=== PATIENT | female | born 1995 | race Caucasian/White ===

== ENCOUNTER 2022-04-23 16:35 | Inpatient (IN) | payer BC, OTHER, SELFPAY ==
[2022-04-23] VITALS (56 sets, daily range): BP systolic 85–226; BP diastolic 34–207; PULSE 84–170; TEMP 36.4–36.8; O2SAT 98–100; BMI 38.7
--- NOTE | 2022-04-23 16:35 | LDADM ---
This patient, Feng Alfaro, was admitted to Labor/Delivery/Recovery 108 on 04/23/22 at 16:35. Plans for labor, pain management and were discussed with patient. Patient/family oriented to hospital policies and general routines including ID bracelet, bed and alarms, visiting hours, pain management, procedures, bathroom and other care routines, personal items, smoking policy, room service/diet and guest tray routines, security routines, and visiting hours. Patient/Family are encouraged to report perceived risks to care and to ask questions if they do not understand what they are told or what they should do. See OBIX for further documentation.
--- NOTE | 2022-04-23 17:16 | P.PNAN_ITS ---
Anes - Eval Pre Procedure Procedure: Labor epidural Date/Time: 04/23/22 17:16 Pre Op Diagnosis: IOL Patient Data Age: 27 Gender: F Height: Weight: Last Vital Signs Pulse 117 H 04/23/22 17:00 BP 135/83 04/23/22 17:00 Allergies Allergy/AdvReac Type Severity Reaction Status Date / Time No Known Drug Allergies Allergy Unknown Unverified 04/11/22 09:57 Home Medications Medication Instructions Recorded Confirmed Type ferrous sulfate 325 mg (65 mg 325 mg PO DAILY 04/08/22 04/08/22 History iron) tablet prenat.vits,greta,ela-iksx-cuuqo 1 tablet PO DAILY 04/08/22 04/08/22 History Patient hx anesthesia problems: none Family hx anesthesia problems: none Results Review: All pre-operative results and documents have been reviewed as part of the pre- operative evaluation. [facility] Past Medical History Medical History (Updated 04/23/22 @ 17:26 by Tricia Lin CRNA) Anxiety Family History Family History Grandparent Diabetes mellitus Father Asthma Mother High cholesterol Social History Social History Substance use: never Spiritual care concerns: No Exam Day of Procedure 04/23/22 17:16 Patient weight: obese Heart: regular rate and rhythm Lungs: normal air movement Airway: Mallampati scale class II Neurological: alert and oriented
[2022-04-23 17:32] LABS: Basophils Percent Auto 0.3 % (0.2-1.2); Eosinophils Absolute Auto 0.2 K/mm3 (0-0.3); Eosinophils Percent Auto 1.5 % (0-4.4); Hematocrit 33.2 % (37.0-47.0); Hemoglobin 11.2 g/dL (12.0-15.0); Lymphocytes Absolute Auto 1.22 K/mm3 (0.9-3.2); Lymphocytes Percent Auto 11.9 % (18.3-44.2); Mean Corpuscular HGB Conc 33.7 g/dl (32-36); Mean Corpuscular Hemoglobin 30.4 pg (26-34); Mean Platelet Volume 10.1 fl (7.4-10.4); Monocytes Absolute Auto 0.6 K/mm3 (0.1-0.6); Monocytes Percent Auto 6.1 % (2.6-8.5); Neutrophils Absolute Auto 8.1 K/mm3 (1.3-6.7); Neutrophils Percent Auto 79.2 % (45.5-73.1); Platelet Count Result 236 k/mm3 (150-375); Red Blood Count 3.69 M/mm3 (4.2-5.4); Red Cell Distribution Width 14.9 % (11.5-14.5); White Blood Count 10.3 K/mm3 (4.5-10.0)
[2022-04-23] MEDS: DINOPROSTONE 10 MG VAG INSERT VAGINAL (17:42)
[2022-04-23] MEDS: LACTATED RINGERS 1,000 ML 125 ML IV CONT (21:35)
[2022-04-23] MEDS: ONDANSETRON INJ 4 MG/2 ML VIAL IV PUSH (23:17)
[2022-04-23] MEDS: LACTATED RINGERS 1,000 ML 999 ML IV CONT (23:17)
[2022-04-23] MEDS: PHENYLEPHRINE 1,000 MCG/10 ML SYRINGE 100 MCG IV PUSH (23:49)
[2022-04-24] VITALS (287 sets, daily range): BP systolic 76–143; BP diastolic 35–104; PULSE 48–206; RESP 13–21; TEMP 36.4–38.1; O2SAT 79–100
[2022-04-24] MEDS: LACTATED RINGERS 1,000 ML 999 ML IV CONT ×3 (01:04→12:16)
--- NOTE | 2022-04-24 02:42 | PM.IMHP ---
H&P: HPI History of Present Illness Date/Time: 04/24/22 02:42 Chief Complaint: Here for induction of labor. Narrative: 27 y/o G1 at 39 5/7 weeks here for induction of labor. GBS neg. Review of Systems Review of Systems: All systems reviewed & are unremarkable except as noted in HPI and below PMFSH Past Medical History Medical History Anxiety Hypothyroidism affecting Infertility Family History Family History Grandparent Diabetes mellitus Father Asthma Mother High cholesterol Social History Social History Smoking status: Never smoker Second hand tobacco smoke exposure: No Substance use: never Spiritual care concerns: No Meds Home Medications and Allergies Home Medications Medication Instructions Recorded Confirmed Type ferrous sulfate 325 mg (65 mg 325 mg PO DAILY 04/08/22 04/23/22 History iron) tablet prenat.vits,greta,etp-[id number] 1 tablet PO DAILY 04/08/22 04/23/22 History Allergies Allergy/AdvReac Type Severity Reaction Status Date / Time No Known Drug Allergies Allergy Unknown Unverified 04/11/22 09:57 Vital Signs Vital Signs - 24 hr 04/23/22 16:52 04/23/22 17:00 04/23/22 17:30 Temperature Pulse Rate 118 H 117 H 103 H Blood Pressure 129/88 135/83 142/76 H Pulse Oximetry Oxygen Delivery 04/23/22 17:45 04/23/22 18:00 04/23/22 18:15 Temperature Pulse Rate 101 H 92 87 Blood Pressure 152/88 H 128/77 132/81 Pulse Oximetry Oxygen Delivery 04/23/22 18:30 04/23/22 18:45 04/23/22 19:00 Temperature Pulse Rate 91 91 91 Blood Pressure 133/81 131/72 131/79 Pulse Oximetry Oxygen Delivery 04/23/22 19:15 04/23/22 19:30 04/23/22 19:49 Temperature Pulse Rate 87 96 100 Blood Pressure 128/73 133/78 142/79 H Pulse Oximetry Oxygen Delivery 04/23/22 20:00 04/23/22 20:15 04/23/22 20:30 Temperature 36.4 C L Pulse Rate 93 87 98 Blood Pressure 131/86 132/86 134/89 Pulse Oximetry Oxygen Delivery 04/23/22 20:46 04/23/22 20:59 04/23/22 21:01 Temperature Pulse Rate 114 H 100 98 Blood Pressure 135/103 H 143/76 H 133/71 Pulse Oximetry Oxygen Delivery 04/23/22 21:16 04/23/22 21:31 04/23/22 21:46 Temperature Pulse Rate 94 95 88 Blood Pressure 153/78 H 143/81 H 125/56 L Pulse Oximetry Oxygen Delivery 04/23/22 22:00 04/23/22 22:45 04/23/22 22:48 Temperature Pulse Rate 100 112 H Blood Pressure 136/76 110/87 Pulse Oximetry 99 Oxygen Delivery 04/23/22 22:50 04/23/22 22:51 04/23/22 22:55 Temperature Pulse Rate 115 H 118 H Blood Pressure 117/67 134/80 Pulse Oximetry 98 100 Oxygen Delivery 04/23/22 22:56 04/23/22 22:57 04/23/22 22:59 Temperature Pulse Rate 122 H 119 H 114 H Blood Pressure 137/73 128/67 127/62 Pulse Oximetry Oxygen Delivery 04/23/22 23:00 04/23/22 23:05 04/23/22 23:10 Temperature Pulse Rate Blood Pressure Pulse Oximetry 100 100 100 Oxygen Delivery 04/23/22 23:14 04/23/22 23:15 04/23/22 23:18 Temperature Pulse Rate 115 H 107 H 98 Blood Pressure 98/60 L 89/42 L 103/50 L Pulse Oximetry 100 Oxygen Delivery 04/23/22 23:20 04/23/22 23:22 04/23/22 23:25 Temperature Pulse Rate 149 H 170 H Blood Pressure 85/66 L 211/179 H Pulse Oximetry 100 100 Oxygen Delivery 04/23/22 23:27 04/23/22 23:28 04/23/22 23:30 Temperature Pulse Rate 84 Blood Pressure 226/207 H 226/194 H Pulse Oximetry 100 Oxygen Delivery 04/23/22 23:31 04/23/22 23:33 04/23/22 23:34 Temperature Pulse Rate 103 H 103 H 94 Blood Pressure 114/38 L 105/39 L 97/37 L Pulse Oximetry Oxygen Delivery 04/23/22 23:35 04/23/22 23:37 04/23/22 23:40 Temperature Pulse Rate 102 H 114 H Blood Pressure 107/34 L 105/43 L Pul
[2022-04-24] MEDS: OXYTOCIN 30 UNITS/NS 500 ML 30 UNITS/500 ML BAG IV CONT (04:34)
[2022-04-24] MEDS: FAMOTIDINE 20 MG TABLET PO (05:18)
[2022-04-24 07:33] LABS: Rapid Plasma Reagin Non-Reactive (NonReactive)
--- NOTE | 2022-04-24 08:44 | PM.OBPNLAB ---
Pain Control Date/time seen: 04/24/22 08:44 Comfortable with epidural. AVSS NST reactive TOCO: contractions every 2-3 min Cervix /-1 Continue labor.
--- NOTE | 2022-04-24 12:00 | PM.OBPNLAB ---
Pain Control Date/time seen: 04/24/22 1200 Pushing since 1120. NST reactive. Pain well-controlled. Continue pushing.
[2022-04-24] MEDS: ONDANSETRON INJ 4 MG/2 ML VIAL IV PUSH (12:10)
--- NOTE | 2022-04-24 13:14 | PM.OBPNLAB ---
Pain Control Date/time seen: 04/24/22 13:14 Pain OK. Temp 100.4 NST reactive 150 TOCO: contractions every 3-4 min Cervix C/0. ROT. Increase oxytocin and continue pushing for now. Ampicillin to address temp.
[2022-04-24] MEDS: AMPICILLIN 2 GM/NS 100 ML 2 GM/100 ML BAG IVPB (13:15)
--- NOTE | 2022-04-24 14:25 | PM.OBPNLAB ---
Pain Control Date/time seen: 04/24/22 14:25 After 3 hours of pushing, the patient was able to bring the presenting part to the +1 of 3 position. I offered VAVD. We reviewed risks, benefits and alternatives in detail. She agreed to proceed. The Kiwi vacuum suction cup was applied to the vertex. Using the Dreifingergriff, the head was gently flexed. She pushed over two contractions, with no pop-offs, no significant descent of the vertex could be effected. I offered the patient a primary delivery. She understands risks of surgery to include risks of anesthesia, risks of pain, infection, bleeding, blood products, thromboembolic phenomena and damage to adjacent structures such as bowel, bladder, ureters, blood vessels and nerves. She understands all these risks and elects to proceed with surgery.
--- NOTE | 2022-04-24 15:25 | PM.OBPRVD ---
OB - Delivery Note Procedure Delivery date: 04/24/22 Procedure: Procedures Operation Date: 04/24/22 14:45 <No data on this case meets the specified criteria> Primary low transverse delivery Intrapartal Events: Arrest of Descent Induction method: Per Cervidil Protocol Delivery augmentation: Pitocin Delivery monitor: External FHT, External Uterine and Internal Uterine Route of delivery: Prior to decision for section, ACOG/SMFM labor guidelines were considered and discussed with the patient and staff. Decision made to proceed with the section.: Yes Specimen: Yes (cord blood, placenta) Quantitative Blood Loss (ml): 875 Anesthesia type: Epidural Disposition: PACU Complications: None Narrative: The patient was taken to the operating room where she was prepared and draped in the usual sterile fashion in dorsal supine position with a leftward tilt. She received cefazolin preoperatively. Epidural anesthesia was found to be adequate. A Pfannenstiel skin incision was made and carried through to the underlying layer of the fascia. The fascia was incised in the midline and the incision was extended laterally. The fascia was dissected free of the underlying rectus muscles. The rectus muscles were in the midline. The peritoneum was identified, tented up and entered sharply. The peritoneal incision was extended superiorly and inferiorly with good visualization of the bladder. The bladder blade was placed. The vesicouterine peritoneum was identified, tented up and entered sharply. The incision was extended laterally and the bladder flap was developed. The bladder blade was replaced. The uterus was then incised sharply in a transverse fashion along the lower uterine segment. The incision was extended laterally. The infant's head was delivered atraumatically to the sterile field, followed by the body. The nose and mouth were bulb suctioned. After a delay, the cord was clamped and cut. The was handed off the field. Cord blood was collected. The placenta was removed manually and was passed off the field. The uterus was exteriorized and cleared of all clots and debris. The uterine incision was reapproximated using 0 Monocryl in a running, locked fashion. A second, imbricating layer of the same suture was run. Excellent hemostasis resulted as did excellent reapproximation of the normal anatomy. The uterus was returned the abdomen. The pelvis was irrigated copiously with warmed normal saline. Rigorous hemostasis was assured. The fascial layer was reapproximated using 0 Vicryl in a running fashion. The skin was closed with a running, subcuticular stitch of 4 0 Vicryl. Dermaflex was applied externally. Sponge, lap, needle and instrument counts were correct. The patient was taken to the recovery room in stable condition. The went to the nursery in stable condition. I was present and scrubbed the entire procedure. Baby Date of : 04/24/22 Time of : 14:56 Weeks of gestation at delivery: 39 gender: Male Weight (pounds): 9 Weight (ounces): 14 presentation: vertex position: Left Occiput Transverse Placenta delivery description: Manual Removal and Normal Configuration Cord Vessel Description: 3 Vessels and Delayed Cord Clamping score one minute: 7 score five minutes: 9
--- NOTE | 2022-04-24 15:27 | P.DS_ITS ---
DS: Admitting Diagnosis Discharge Date 04/26/22 Admitting Diagnosis IUP at 39 6/7 OB - DS: Summary OB Procedures : None OB Procedures Intrapartum: OB Procedures: : None Peripartum Data Procedures: Procedures Operation Date: 04/24/22 14:45 <No data on this case meets the specified criteria> Time Spent with Patient Time attestation: Total time spent providing and/or coordinating discharge services: DS: Data Data Completed and Pending Labs on day of discharge: Labs from last 24 hours 04/23/22 04/23/22 04/23/22 16:59 16:59 16:59 WBC 10.3 H RBC 3.69 L Hgb 11.2 L Hct 33.2 L MCV 90.0 MCH 30.4 MCHC 33.7 RDW 14.9 H Plt Count 236 MPV 10.1 Immature Gran % (Auto) 1.0 H Neut % (Auto) 79.2 H Lymph % (Auto) 11.9 L Bennett % (Auto) 6.1 Eos % (Auto) 1.5 Baso % (Auto) 0.3 Lymph # (Auto) 1.22 Bennett # (Auto) 0.6 Eos # (Auto) 0.2 Baso # (Auto) 0.0 Abs Immat Gran (auto) 0.10 H Absolute Neuts (auto) 8.1 H Absolute Nucleated RBC 0.0 Nucleated RBC % 0.0 RPR Non-reactive Blood Type A Positive Antibody Screen Negative Discharge Plan Discharge Attending physician on discharge: Arnol Mccray Discharging Clinician: Arnol Mccray Patient Disposition: Home, Self-Care Activity: may shower, may drive after 2 weeks and pelvic rest Diet: regular Wound Care Instructions: incision open to air Discharge Instructions: Call or return if temperature above 100.4? F, increased abdominal pain, increased vaginal bleeding or any new problems. Stand Alone Forms: General Discharge Information Follow-up/Referrals: Arnol Mccray MD [Physician] - 4 Weeks Discharge Medications: New ibuprofen 600 mg tablet 600 mg PO Q6H PRN (Reason: cramps) Qty: 30 0RF hydrocodone-acetaminophen 5-325 mg tablet 1 - 2 tablet PO Q6H PRN (Reason: pain) Qty: 30 0RF Continued ferrous sulfate 325 mg (65 mg iron) Tablet 325 mg PO DAILY Qty: 30 0RF No Action #2 Tablet 1 tablet PO DAILY Date of admission: 04/23/22 16:35 Primary Care Provider: Ming,Allison Huang Admitting Provider: Arnol Mccray Attending physician on admission: Arnol Mccray Condition: Stable
[2022-04-24] MEDS: SCOPOLAMINE 1.5 MG PATCH TRANSDERM (16:17)
[2022-04-24] MEDS: OXYTOCIN 30 UNITS/NS 500 ML 30 UNITS/500 ML BAG 125 UNITS IV CONT (16:21)
[2022-04-24] MEDS: KETOROLAC 30 MG/ML VIAL (*BKC) IV PUSH (17:21)
--- NOTE | 2022-04-24 17:45 | PC.NURSE ---
Patient transferred to post room #286 via stretcher. Support person present. Oriented to unit, room, information board, rooming in, admission packet and security measures. Patient verbalizes understanding.
[2022-04-24] MEDS: SIMETHICONE 80 MG TAB.CHEW PO (18:53)
[2022-04-24] MEDS: DOCUSATE SODIUM 100 MG CAPSULE PO (18:53)
[2022-04-24] MEDS: HYDROcodone/acetaminophen (*CRX) 10-325 MG TABLET 1 TAB PO (18:53)
[2022-04-24] MEDS: DEXTROSE 5%/0.45% SOD CHL 1,000 ML 125 ML IV CONT (19:48)
[2022-04-25] MEDS: LANOLIN (LANSINOH) 7.5 GM CREAM 1 APPLIC TOPICAL (01:58)
[2022-04-25] MEDS: IBUPROFEN 600 MG TABLET PO ×3 (01:58→20:01)
[2022-04-25] MEDS: SIMETHICONE 80 MG TAB.CHEW PO ×5 (01:58→20:01)
[2022-04-25] MEDS: HYDROcodone/acetaminophen (*CRX) 10-325 MG TABLET 1 TAB PO ×4 (02:00→20:01)
[2022-04-25 04:00] VITALS: BP 116/65; PULSE 84; RESP 18; TEMP 37
[2022-04-25 05:12] LABS: Basophils Absolute Auto 0.1 K/mm3 (0.0-0.1); Basophils Percent Auto 0.4 % (0.2-1.2); Eosinophils Percent Auto 0.2 % (0-4.4); Hematocrit 23.1 % (37.0-47.0); Hemoglobin 7.7 g/dL (12.0-15.0); Immature Granulocyte Absolute 0.05 K/mm3 (0.00-0.031); Immature Granulocyte Percent A 0.4 % (0-0.5); Lymphocytes Absolute Auto 0.65 K/mm3 (0.9-3.2); Lymphocytes Percent Auto 5.4 % (18.3-44.2); Mean Corpuscular HGB Conc 33.3 g/dl (32-36); Mean Corpuscular Hemoglobin 30.6 pg (26-34); Mean Corpuscular Volume 91.7 fl (80-100); Mean Platelet Volume 10.3 fl (7.4-10.4); Monocytes Absolute Auto 0.5 K/mm3 (0.1-0.6); Neutrophils Absolute Auto 10.7 K/mm3 (1.3-6.7); Neutrophils Percent Auto 89.6 % (45.5-73.1); Platelet Count Result 151 k/mm3 (150-375); Red Blood Count 2.52 M/mm3 (4.2-5.4); Red Cell Distribution Width 15.3 % (11.5-14.5)
[2022-04-25 07:45] VITALS: BP 112/58; PULSE 103; RESP 16; TEMP 36.8; O2SAT 99
[2022-04-25] MEDS: MULTIVIT/MIN/PREN/FOL AC/IRON TABLET 1 TAB PO (08:09)
[2022-04-25] MEDS: POLYSACCHARIDE IRON COMPLEX 150 MG CAPSULE PO ×2 (08:09→16:13)
[2022-04-25] MEDS: DOCUSATE SODIUM 100 MG CAPSULE PO ×2 (08:09→16:13)
[2022-04-25] MEDS: HYDROcodone/acetaminophen (*CRX) 5-325 MG TABLET 1 TAB PO (11:50)
[2022-04-25 12:15] VITALS: BP 118/59; PULSE 95; RESP 16; TEMP 36.6; O2SAT 98
--- NOTE | 2022-04-25 13:32 | P.PNOB_ITS ---
OB - PN: Subj Subjective Date/time seen: 04/25/22 13:32 Narrative: Pain OK. Tolerating diet. Would like circumcision for son. OB - PN: Obj Data Labs CBC & Chem 7: 04/25/22 04:18 Labs: Laboratory Results - last 24 hr 04/25/22 04:18 WBC 12.0 H RBC 2.52 L Hgb 7.7 L D Hct 23.1 L MCV 91.7 MCH 30.6 MCHC 33.3 RDW 15.3 H Plt Count 151 MPV 10.3 Immature Gran % (Auto) 0.4 Neut % (Auto) 89.6 H Lymph % (Auto) 5.4 L Garland % (Auto) 4.0 Eos % (Auto) 0.2 Baso % (Auto) 0.4 Lymph # (Auto) 0.65 L Garland # (Auto) 0.5 Eos # (Auto) 0.0 Baso # (Auto) 0.1 Abs Immat Gran (auto) 0.05 H Absolute Neuts (auto) 10.7 H Absolute Nucleated RBC 0.0 Nucleated RBC % 0.0 OB - PN A/P Plan Comments: A: POD#1, doing well. P: Reviewed circ. Routine care. Exam Narrative: AVSS I/O OK ABD soft, nontender, fundus firm. Incision c/d/i. EXT nontender
--- NOTE | 2022-04-25 15:35 | PC.NURSE ---
[id number] Introductions were made, then consulted with patient to assess needs related to . Mother led the conversation with her experience feeding her so far. Encouraged understanding of the benefits of skin to skin (unwrapping infant and placing vertically on her chest), responsive feeding and how to watch for early feeding signs, frequency of feeding on demand about every 8-12 times in 24 hours (every 2-3 hours), milk production, duration of feeding, signs of adequate intake/output and how to record on the feeding sheet. Reviewed good handwashing when or touching the breast/nipples to prevent infection. Resources used to facilitate learning were used with the visual handouts/ tool/mom and baby guide. Educated mother concerning care and usage of electric pumping and the artful skill of hand expression. Mother voiced understanding of responsive feedings, stimulating with skin to skin, hand expressed colostrum, touch, talking to infant to encourage if it has been 2 -3 hours since the start of the last , to call if does not latch or there is discomfort with . Reported to the primary RN. [id number] Consulted with patient to assess needs related to when called into the room after infant returned from being circumcised. Mother led conversation with her experience with feeding baby so far. Mother works well with her infant. Mother demonstrated hand expression and finger fed scant amounts of colostrum into infants mouth. Demonstrated to parents how to simtulate to breastfeed and infant is sleepy, reluctant, and shows no efforts to breastfeed at this time. Infant placed skin to skin, mother plans on hand expressing, electric pumping and possibly supplementing now or later. Mother voiced understanding of the education shared, calling for assistance if the infant does not latch or if there is discomfort with . Reported to the primary RN.
[2022-04-25 15:45] VITALS: BP 116/58; PULSE 97; RESP 16; TEMP 36.6; O2SAT 98
--- NOTE | 2022-04-25 18:48 | WPDANLDNPN2 ---
Anes-Prog Note L&D-Neuraxial Date/Time: 04/25/22 18:48 Neuraxial medications: epidural PF morphine Opiod-related complaints: none Patient feedback: Patient satisfied with post-operative pain management.
--- NOTE | 2022-04-25 18:49 | WPDANLDPN2 ---
Anes-Prog Note L&D Date/Time: 04/25/22 18:49 Comfortable throughout: labor and section Neuraxial method: epidural Epidural/Spinal procedure site: clean & non-tender Neuro status: Neuro function grossly intact. Cardiovascular status: normal Respiratory status: normal Airway patency: baseline Mental status: baseline Post-Op hydration status: normal Vital Signs: Last Vital Signs Temp 36.6 C 04/25/22 15:45 Pulse 97 04/25/22 15:45 Resp 16 04/25/22 15:45 BP 116/58 L 04/25/22 15:45 Pulse Ox 98 04/25/22 15:45 O2 Del Method Room Air 04/25/22 04:00 Pain score (VAS): 0 I/O: Intake & Output 04/25/22 04/25/22 04/25/22 07:59 15:59 23:59 Intake Total 3000 590 Output Total 1200 Balance 1800 590 Patient feedback: Patient satisfied with anesthetic care.
[2022-04-25 19:50] VITALS: BP 132/68; PULSE 116; RESP 16; TEMP 37.2
[2022-04-26] MEDS: HYDROcodone/acetaminophen (*CRX) 10-325 MG TABLET 1 TAB PO ×2 (04:25→12:24)
[2022-04-26] MEDS: IBUPROFEN 600 MG TABLET PO ×2 (04:25→12:23)
[2022-04-26] MEDS: SIMETHICONE 80 MG TAB.CHEW PO ×2 (04:25→12:23)
[2022-04-26 07:15] VITALS: PULSE 116; RESP 16; O2SAT 98
[2022-04-26 07:55] VITALS: BP 112/55; PULSE 95; RESP 16; TEMP 36.6; O2SAT 100
--- NOTE | 2022-04-26 11:38 | PM.OBPNVD ---
OB - PN: Subj Subjective Date/time seen: 04/26/22 11:38 Narrative: Pain OK. Tolerating diet. Would like to go home. OB - PN: Obj Data Labs CBC & Chem 7: 04/25/22 04:18 OB - PN A/P Plan Comments: A: POD#2, doing well. Would like to go home. P: Home to f/u 4 weeks. Exam Narrative: AVSS ABD soft, nontender, fundus firm. Incision c/d/i. EXT nontender
--- NOTE | 2022-04-26 11:46 | PC.NURSE ---
This morning primary RN Laura reported mother has been bottle feeding her and pumping. She doesn't request any additional assistance at this time.
--- NOTE | 2022-04-26 12:15 | PC.NURSE ---
Patient viewed the discharge video Mother & Baby Care, The First Two Weeks . Patient was given the opportunity and encouraged to ask questions. Patient verbalized understanding of information shared and has been given the mother/baby guide for home reference.
[2022-04-26] MEDS: MEASLES,MUMPS,RUBELLA VACCINE 0.5 ML VIAL SUB-Q (12:21)
[2022-04-26] MEDS: POLYSACCHARIDE IRON COMPLEX 150 MG CAPSULE PO (12:22)
[2022-04-26] MEDS: DOCUSATE SODIUM 100 MG CAPSULE PO (12:22)
[2022-04-26] MEDS: MULTIVIT/MIN/PREN/FOL AC/IRON TABLET 1 TAB PO (12:23)
[2022-04-27 07:53] VITALS: BP 126/59; PULSE 120; RESP 20; TEMP 37.1; O2SAT 98
== END 2022-04-26 13:05 | disposition home or self-care (01) | DRG 787 ==
LOC: ANHLDR 16:40 → ANHOB2 04-24 18:22
PROVIDERS: Admitting Provider Obstetrics & Gynecology; PCP Family Medicine; Visit Provider Obstetrics & Gynecology
PROC: 10D00Z1 Extraction of Products of Conception, Low, Open Approach (ICD-10-PCS; CPT 59514; principal; 2022-04-24 14:45)
DX: O62.1 Secondary uterine inertia (principal); O75.2 Pyrexia during labor, not elsewhere classified; O99.284 Endocrine, nutritional and metabolic diseases complicating childbirth; E03.9 Hypothyroidism, unspecified; O77.0 Labor and delivery complicated by meconium in amniotic fluid; Z3A.39 39 weeks gestation of pregnancy; Z37.0 Single live birth
CPT/HCPCS: 36415; 85025; 86592; 86850; 86900; 86901; 88307; 90710; A9270; J0290; J1200; J1885; J2250; J2274; J2370; J2405; J2590; J2795; J7120

== ENCOUNTER 2022-05-01 16:46 | Outpatient (CLI) | payer BC, OTHER, SELFPAY ==
[2022-05-01 17:00] VITALS: BP 128/66; PULSE 107
[2022-05-01 17:05] VITALS: RESP 18; TEMP 35.9
--- NOTE | 2022-05-01 17:05 | PC.NURSE ---
Patient was sent to Labor per Dr Ruiz. Patient was found to have a seroma in her c/s incision. C/S delivery on 04/24/22. Dr Ruiz on unit to clean incision and apply HALLIE Dressing. See MD notes.
--- NOTE | 2022-05-01 17:13 | P.PNOB_ITS ---
OB - Triage/Final Diagnosis Visit Information Date of evaluation: 05/01/22 Reason for evaluation: other (incisional seroma) Comments/Additional reasons for admission: I have assessed the risk for this patient, Feng Alfaro, and determined that she would benefit from observation care. Evaluation Vital signs: Vital Signs - 24 hr 05/01/22 17:00 Pulse Rate 107 H Blood Pressure 128/66 Comments: Pt is 1 wk post op from section. Pt had large amount of serosanguineous discharge today. Panus and surrounding incision very edematous. Dermabond glue removed from over incision. There are 3 large separations in the incision in the midline. The openings were probed with sterile cotton swabs. The fascia was tho ught to be intact. There was a large pocket of seroma in the subcutaneous layer. Incision cleaned with swabs and alcohol swabs. HALLIE vacuum dressing was placed over incision. Good seal was obtained and battery pack was applied. Good seal was obtained. Pt was given the second dressing for the wound vac. She was prescribed Augmentin. pt will follow up outpatient on Sunday for dressing change and wound check. Final Diagnosis (1) Seroma after procedure: Status: Acute
== END 2022-05-01 17:15 | disposition home or self-care (01) ==
LOC: ANHOBOP 16:51 → ANHLDR 16:52
PROVIDERS: PCP Family Medicine; Visit Provider Student in an Organized Health Care Education/Training Program
DX: T14.8XXA Other injury of unspecified body region, initial encounter (principal)
CPT/HCPCS: 99199

== ENCOUNTER 2024-07-20 09:59 | Outpatient (RCR) | payer BC, OTHER, SELFPAY ==
[2024-07-20 11:00] VITALS: BP 135/80; PULSE 91
== END 2024-10-18 16:13 | disposition home or self-care (01) ==
LOC: ANHOBOP 09:59
PROVIDERS: PCP Family Medicine; Visit Provider Pediatrics
DX: O99.891 Other specified diseases and conditions complicating pregnancy (principal); W19.XXXA Unspecified fall, initial encounter; Z3A.29 29 weeks gestation of pregnancy
CPT/HCPCS: 59025

== ENCOUNTER 2024-09-13 | Observation (INO) | payer BC, OTHER, SELFPAY ==
[2024-09-13] MEDS: LACTATED RINGERS 1,000 ML 999 ML IV CONT (01:14)
[2024-09-13 01:15] VITALS: BP 119/72; PULSE 101
[2024-09-13 01:18] VITALS: TEMP 36.8
[2024-09-13] MEDS: ACETAMINOPHEN 500 MG TABLET 1000 MG PO (01:18)
[2024-09-13 01:24] VITALS: BMI 37.1
[2024-09-13 01:30] VITALS: BP 131/66; PULSE 91
[2024-09-13 01:45] VITALS: BP 110/50; PULSE 92
[2024-09-13 02:00] VITALS: BP 107/63; PULSE 90
--- NOTE | 2024-10-17 11:06 | PM.OBTRLD ---
OB - Triage/Final Diagnosis Visit Information Comments/Additional reasons for admission: I have assessed the risk for this patient, Feng Alfaro, and determined that she would benefit from observation care. Final Diagnosis (1) Vaginal bleeding during : Code(s): O46.90 - Antepartum hemorrhage, unspecified, unspecified trimester Status: Acute
== END 2024-09-13 02:25 | disposition home or self-care (01) ==
PROVIDERS: Admitting Provider Obstetrics & Gynecology; PCP Family Medicine; Visit Provider Obstetrics & Gynecology
DX: O46.93 Antepartum hemorrhage, unspecified, third trimester (principal); Z3A.37 37 weeks gestation of pregnancy
CPT/HCPCS: 96360; A9270; G0378; G0379; J7120

== ENCOUNTER 2024-09-25 14:49 | Outpatient (CLI) | payer BC, OTHER, SELFPAY ==
[2024-09-25 15:21] LABS: Hematocrit 33.2 % (37.0-47.0); Hemoglobin 10.1 g/dL (12.0-15.0); Mean Corpuscular HGB Conc 30.4 g/dl (32-36); Mean Corpuscular Hemoglobin 25.4 pg (26-34); Mean Corpuscular Volume 83.6 fl (80-100); Mean Platelet Volume 10.1 fl (7.4-10.4); Platelet Count Result 249 k/mm3 (150-375); Red Blood Count 3.97 M/mm3 (4.2-5.4); Red Cell Distribution Width 20.5 % (11.5-14.5); White Blood Count 10.9 K/mm3 (4.5-10.0)
[2024-09-25 16:19] LABS: HIV 1/2 Ab P24 Ag Result Negative (Negative)
[2024-09-26 13:48] LABS: Rapid Plasma Reagin Non-Reactive (NonReactive)
== END 2024-09-25 14:50 | disposition home or self-care (01) ==
LOC: ANHLAB 14:51
PROVIDERS: PCP Family Medicine; Visit Provider Obstetrics & Gynecology
DX: Z34.93 Encounter for supervision of normal pregnancy, unspecified, third trimester (principal); Z3A.00 Weeks of gestation of pregnancy not specified
CPT/HCPCS: 36415; 85027; 86592; 86703; 86850; 86900; 86901; G0432

== ENCOUNTER 2024-09-26 09:55 | Inpatient (IN) | payer BC, OTHER, SELFPAY ==
[2024-09-26] VITALS (38 sets, daily range): BP systolic 108–147; BP diastolic 38–83; PULSE 66–115; RESP 14–20; TEMP 36.3–37.1; O2SAT 96–100; BMI 39.6
[2024-09-26] MEDS: ACETAMINOPHEN 500 MG TABLET 1000 MG PO (10:38)
[2024-09-26] MEDS: LACTATED RINGERS 1,000 ML 125 ML IV CONT ×2 (10:41→11:42)
--- NOTE | 2024-09-26 10:48 | LDADM ---
This patient, Feng Alfaro, was admitted to Labor/Delivery/Recovery 120 on 09/26/24 at 09:55. Plans for section, pain management and were discussed with patient. Patient/family oriented to hospital policies and general routines including ID bracelet, bed and alarms, visiting hours, pain management, procedures, bathroom and other care routines, personal items, smoking policy, room service/diet and guest tray routines, security routines, and visiting hours. Patient/Family are encouraged to report perceived risks to care and to ask questions if they do not understand what they are told or what they should do. See OBIX for further documentation.
--- NOTE | 2024-09-26 11:13 | P.PNAN_ITS ---
Anes - Initial Pre Proc Eval Procedure: Operation Date: 09/26/24 12:00 Proposed Procedures p Repeat Section - Arnol Mccray MD Date/Time: 09/26/24 11:13 Surgeon: Arnol Mccray MD Pre Op Diagnosis: c/s Patient Data Age: 29 Gender: F Height: 1.68 m Weight: 111.3 kg Last Vital Signs Pulse 101 H 09/26/24 10:45 BP 143/83 H 09/26/24 10:45 O2 Del Method Room Air 09/26/24 10:47 Allergies Allergy/AdvReac Type Severity Reaction Status Date / Time No Known Drug Allergies Allergy Unknown Other Verified 09/13/24 12:34 Home Medications ?Medication ?Instructions ?Recorded ?Confirmed ?Type prenat.vits,greta,ccg-[id number]-hmqcb 1 tablet PO DAILY 04/08/22 09/26/24 History ferrous sulfate 325 mg (65 mg 325 mg PO DAILY #30 tabs 04/25/22 09/26/24 Rx iron) tablet Patient hx anesthesia problems: none Family hx anesthesia problems: none Results Review: All pre-operative results and documents have been reviewed as part of the pre- operative evaluation. [facility] Past Medical History Medical History Anxiety Hypothyroidism affecting Infertility Family History Family History Grandparent Diabetes mellitus Father Asthma Mother High cholesterol Social History Social History Smoking status: Never smoker Second hand tobacco smoke exposure: No Substance use: never Do You Feel Safe in your Home?: Yes Lack of Transportation: No Lack of Food: Never True Current Housing: I Have Housing Concerned About Future Housing: No Difficulty Paying Gas/Electric Bills: No Difficulty Paying for Meds: No Currently Unemployed: No Education: Master's Degree or Higher Difficulty w/ Childcare or Family Care: No Spiritual care concerns: No Anes - Eval Final PreProcedure Day of Procedure 09/26/24 11:13 Patient weight: obese Heart: regular rate and rhythm Lungs: clear to auscultation Airway: Mallampati scale class II Neurological: alert and oriented Last oral intake: >/= 8 hours ASA classification: II Emergent: no Anesthetic plan: proceed Anesthesia type and monitoring: regional spinal and standard monitoring Results Review: All pre-operative results and documents have been reviewed as part of the pre- operative evaluation. Informed Consent: The patient's anesthetic plan and its attendant risks and benefits were discussed with the patient/family/POA. Questions were solicited and answers provided to the satisfaction of the patient/family/POA.
--- NOTE | 2024-09-26 11:31 | P.HP_ITS ---
H&P: HPI History of Present Illness Date/Time: 09/26/24 11:31 Chief Complaint: Repeat c section Narrative: 29 y/o at 39 weeks with prior , desiring repeat. GBS neg. Review of Systems Review of Systems: All systems reviewed & are unremarkable except as noted in HPI and below PMFSH Past Medical History Medical History Infertility Hypothyroidism affecting Anxiety Surgical History Surgical History (Updated 09/26/24 @ 11:33 by Arnol Mccray MD) History of delivery Family History Family History Grandparent Diabetes mellitus Father Asthma Mother High cholesterol Social History Social History Smoking status: Never smoker Second hand tobacco smoke exposure: No Substance use: never Do You Feel Safe in your Home?: Yes Lack of Transportation: No Lack of Food: Never True Current Housing: I Have Housing Concerned About Future Housing: No Difficulty Paying Gas/Electric Bills: No Difficulty Paying for Meds: No Currently Unemployed: No Education: Master's Degree or Higher Difficulty w/ Childcare or Family Care: No Spiritual care concerns: No Meds Home Medications and Allergies Home Medications ?Medication ?Instructions ?Recorded ?Confirmed ?Type prenat.vits,greta,nci-lfic-ixenb 1 tablet PO DAILY 04/08/22 09/26/24 History ferrous sulfate 325 mg (65 mg 325 mg PO DAILY #30 tabs 04/25/22 09/26/24 Rx iron) tablet Allergies Allergy/AdvReac Type Severity Reaction Status Date / Time No Known Drug Allergies Allergy Unknown Other Verified 09/13/24 12:34 Vital Signs Vital Signs - 24 hr 09/26/24 10:38 09/26/24 10:45 09/26/24 10:47 Pulse Rate 103 H 101 H Blood Pressure 143/83 H Oxygen Delivery Room Air Exam Const: Orientation/consciousness: patient oriented x3 Other: Well-developed, well-nourished female in no acute distress. Neck: Thyroid: thyroid normal Lymphatic: no lymphadenopathy noted (in neck, axilla or inguinal nodes) Resp: Effort & Inspection: normal respiratory effort Auscultation: clear to auscultation bilaterally Cardio: Rate: regular rate Rhythm: regular rhythm Heart sounds: S1 normal heart sound present and S2 normal heart sound present GI: Other: ABD: Soft, nontender, nondistended, gravid. NST reactive. TOCO: no contractions. No guarding or rebound tenderness. No hepatosplenomegaly. : General: Yes no CVA tenderness Other: Cervix: cl/50 Back/Spine/Pelvis: Back: no CVA tenderness Skin: General skin exam: normal color and no rashes or lesions noted Neuro: General: patient oriented x3 Extrem: Other: Extremities: nontender with no edema Psych: Mental Status: mental status grossly normal Affect: normal affect Assessment and Plan Assessment and plan (1) Term : Code(s): Z34.90 - Encounter for supervision of normal , unspecified, unspecified trimester Status: Acute Assessment and Plan: A: IUP at 39 weeks with prior , desiring repeat. P: Offered repeat . She understands risks of surgery to include risks of anesthesia, risks of pain, infection, bleeding, blood products, th romboembolic phenomena and damage to adjacent structures such as bowel, bladder, ureters, blood vessels and nerves. She understands all these risks and elects to proceed with surgery. (2) History of delivery: Code(s): Z98.891 - History of uterine scar from previous surgery Status: Acute
[2024-09-26] MEDS: ONDANSETRON INJ 4 MG/2 ML VIAL IV PUSH ×3 (11:32→19:00)
[2024-09-26] MEDS: FAMOTIDINE 20 MG/2 ML VIAL IV PUSH (11:32)
--- NOTE | 2024-09-26 11:34 | WPDHPUPDATE1 ---
History and Physical Update Update Date/Time: 09/26/24 11:34 History and Physical has been reviewed, including an updated exam of the patient. There are NO changes in the patient's condition. Risks, benefits, and alternatives have been discussed and questions answered. Patient agrees to proceed with procedure.
[2024-09-26] MEDS: ceFAZolin 2 GM/D5W 50 ML 2 GM/50 ML BAG IVPB (11:58)
--- NOTE | 2024-09-26 12:58 | P.PCNOB_ITS ---
OB - Delivery Note Procedure Delivery date: 09/26/24 Pre-op diagnosis: Previous Delivery Post-op Diagnosis: Same Induction method: None Delivery monitor: External FHT and External Uterine Procedure Performed: Repeat Surgeon: Arnol Mccray MD Anesthesia type: Spinal Description of Procedure/Findings: The patient was taken to the operating room where she was prepared and draped in the usual sterile fashion in dorsal supine position with a leftward tilt. She received cefazolin preoperatively. Spinal anesthesia was found to be adequate. A Pfannenstiel skin incision was made along the previous scar line and was carried through to the underlying layer of the fascia. The fascia was incised in the midline and the incision was extended laterally. The fascia was dissected free of the underlying rectus muscles. The rectus muscles were in the midline. The peritoneum was identified, tented up and entered sharply. The peritoneal incision was extended superiorly and inferiorly with good visualization of the bladder. The bladder blade was placed. The vesicouterine peritoneum was identified, tented up and entered sharply. The incision was extended laterally and the bladder flap was developed. The bladder blade was replaced. The uterus was then incised sharply in a transverse fashion along the lower uterine segment. The incision was extended laterally. The 's head was delivered atraumatically to the sterile field, followed by the body. The nose and mouth were bulb suctioned. After a delay, the cord was clamped and cut. The infant was handed off the field. Cord blood was collected. The placenta was removed manually and was passed off the field. The uterus was exteriorized and cleared of all clots and debris. The uterine incision was reapproximated using 0 Monocryl in a running, locked fashion. Excellent hemostasis resulted as did excellent reapproximation of the normal anatomy. The uterus was returned the abdomen. The pelvis was irrigated copiously with warmed normal saline. Rigorous hemostasis was assured. The fascial layer was reapproximated using 0 Vicryl in a running fashion. The skin was closed with a running, subcuticular stitch of 4 0 Vicryl. Dermaflex was applied externally. Sponge, lap, needle and instrument counts were correct. The patient was taken to the recovery room in stable condition. The went to the nursery in stable condition. I was present and scrubbed the entire p rocedure. Specimen: Yes (cord blood) Estimated Blood Loss: 455 Drains: Yes (aguilera) Packing: No Pathology: Yes (cord blood) Complications: None Condition: Stable Disposition: PACU [place] Baby Date of : 09/26/24 Time of : 12:29 Gestational Age by Date: 39 Infant gender: Male Weight (pounds): 10 Weight (ounces): 8 presentation: vertex Placenta delivery description: Manual Removal and Normal Configuration Cord Vessel Description: 3 Vessels and Delayed Cord Clamping score one minute: 8 score five minutes: 9
--- NOTE | 2024-09-26 13:00 | P.DS_ITS ---
DS: Admitting Diagnosis Discharge Date 09/28/24 Admitting Diagnosis IUP at 39 weeks Prior , desires repeat DS: Discharge Diagnosis Discharge Diagnosis (1) delivery delivered: Code(s): O82 - Encounter for delivery without indication Status: Acute OB - DS: Summary OB Procedures : None OB Procedures Intrapartum: OB Procedures: : None Peripartum Data Procedures: Procedures Operation Date: 09/26/24 12:00 <No data on this case meets the specified criteria> Time Spent with Patient Time attestation: Total time spent providing and/or coordinating discharge services: Discharge Plan Discharge Attending physician on discharge: Arnol Mccray Discharging Clinician: Arnol Mccray Patient Disposition: Home, Self-Care Activity: may shower, may drive after 2 weeks and pelvic rest Diet: regular Wound Care Instructions: incision open to air Discharge Instructions: Call or return if temperature above 100.4? F, increased abdominal pain, increased vaginal bleeding or any new problems. Patient Language: Citizen Of [place] Stand Alone Forms: General Discharge Information Follow-up/Referrals: Arnol Mccray MD [Physician] - 4 Weeks Discharge Medications: New ibuprofen 600 mg tablet 600 mg PO Q6H PRN (Reason: cramps) Qty: 30 0RF ferrous sulfate 325 mg (65 mg iron) tablet 325 mg PO DAILY Qty: 30 0RF hydrocodone-acetaminophen 5-325 mg tablet 1 - 2 tablet PO Q6H PRN (Reason: pain) Qty: 30 0RF Discontinued ferrous sulfate 325 mg (65 mg iron) Tablet 325 mg PO DAILY Qty: 30 0RF No Action prenat.vits,greta,zlc-jdfy-ijngl Tablet 1 tablet PO DAILY Date of admission: 09/26/24 09:55 Primary Care Provider: MingAllison Admitting Provider: Arnol Mccray Attending physician on admission: Arnol Mccray Condition: Stable
[2024-09-26] MEDS: OXYTOCIN 30 UNITS/NS 500 ML 30 UNITS/500 ML BAG 125 UNITS IV CONT (15:08)
--- NOTE | 2024-09-26 15:16 | OBPPTRN ---
Patient transferred to post room #291 via stretcher. Support person present. Oriented to unit, room, information board, rooming in, admission packet and security measures. Patient verbalizes understanding.
[2024-09-26] MEDS: LACTATED RINGERS 1,000 ML 999 ML IV CONT (15:30)
[2024-09-26] MEDS: LIDOCAINE 5% PATCH 1 PATCH TRANSDERM (15:31)
[2024-09-26] MEDS: KETOROLAC 15 MG/ML VIAL (*BKC) IV PUSH ×2 (15:32→21:40)
[2024-09-26] MEDS: diphenhydrAMINE HCl INJ 50 MG/ML VIAL 25 MG IV PUSH (15:32)
[2024-09-26] MEDS: SIMETHICONE 80 MG TAB.CHEW PO (17:19)
[2024-09-26] MEDS: DOCUSATE SODIUM 100 MG CAPSULE PO (17:19)
--- NOTE | 2024-09-26 17:50 | PC.NURSE ---
1615- Patient attempting to feed baby and he is very sleepy. Primary RN requested assistance. He will open and latch but does not suck. Mom was able to express some drops of colostrum that we put into baby's mouth. He is LGA and his blood sugar was WNL at this time. We tried for about 10 minutes and then mom placed baby skin to skin to give him a little more time. Will attempt to feed again in 30 minutes to an hour. Reported to Primary RN. 1700- To patient room to see if baby had eaten. Mom was attempting and he will wake to cry but when place next to the breast or when he opens to latch, he just falls asleep again. We tried for several minutes and then discussed options. We can give him a little more time to wake up, we can pump and give what we get, or we can supplement if mom desires. Mom would like to let baby rest a little longer and to rest herself. If he doesn't feed at the next attempt, she would like to pump. Primary RN notified. 1750- Primary RN called out to say infant was giving feeding cues and that they had been trying to latch but he would either cry at the breast or sleep. We repositioned him and attempted for a while without success. Then we did a diaper change and he was awake and vigorous. When placed back in football hold, he would latch but wouldn't suck. Mom was expressing drops to put in infants mouth, and then rolled her nipple to chriss it more. Baby began to look more alert and he latched to the breast and suckled. He continued suckling intermittently with some stimulation. He was swallowing every 3-4 sucks. Mom was very excited and encouraged that he latched. She would really like to have success this baby because she struggled with latching her first baby and wasn't able to breastfeed. Encouraged trying to have baby nurse for 15 minutes if he will, and offering the other breast if he desires. Reported to primary RN.
[2024-09-26] MEDS: DEXTROSE 5%/0.45% SOD CHL 1,000 ML 125 ML IV CONT (18:52)
[2024-09-26] MEDS: ACETAMINOPHEN 325 MG TABLET 650 MG PO (21:40)
[2024-09-27] MEDS: HYDROcodone/acetaminophen (*CRX) 10-325 MG TABLET 1 TAB PO ×4 (02:10→19:43)
[2024-09-27 04:25] VITALS: BP 128/70; PULSE 82; RESP 18; TEMP 36.8; O2SAT 100
[2024-09-27] MEDS: ACETAMINOPHEN 325 MG TABLET 650 MG PO ×4 (04:25→23:40)
[2024-09-27] MEDS: KETOROLAC 15 MG/ML VIAL (*BKC) IV PUSH (04:25)
[2024-09-27 04:51] LABS: Basophils Percent Auto 0.2 % (0.2-1.2); Eosinophils Absolute Auto 0.1 K/mm3 (0-0.3); Eosinophils Percent Auto 1.6 % (0-4.4); Hematocrit 29.1 % (37.0-47.0); Hemoglobin 8.7 g/dL (12.0-15.0); Immature Granulocyte Absolute 0.05 K/mm3 (0.00-0.031); Immature Granulocyte Percent A 0.6 % (0-0.5); Lymphocytes Absolute Auto 0.97 K/mm3 (0.9-3.2); Lymphocytes Percent Auto 11.3 % (18.3-44.2); Mean Corpuscular HGB Conc 29.9 g/dl (32-36); Mean Corpuscular Hemoglobin 25.4 pg (26-34); Mean Corpuscular Volume 84.8 fl (80-100); Monocytes Absolute Auto 0.5 K/mm3 (0.1-0.6); Monocytes Percent Auto 5.9 % (2.6-8.5); Neutrophils Absolute Auto 6.9 K/mm3 (1.3-6.7); Neutrophils Percent Auto 80.4 % (45.5-73.1); Platelet Count Result 181 k/mm3 (150-375); Red Blood Count 3.43 M/mm3 (4.2-5.4); Red Cell Distribution Width 20.4 % (11.5-14.5); White Blood Count 8.6 K/mm3 (4.5-10.0)
[2024-09-27 05:21] LABS: Anisocytosis 1+; Hypochromasia 1+; Microcytosis 1+ (NORMAL); Platelet Estimate Adequate (Adequate); Schistocytes None Seen; Tear Drop Cells 1+
[2024-09-27 08:30] VITALS: BP 123/71; PULSE 89; RESP 16; TEMP 36.6; O2SAT 98
[2024-09-27] MEDS: SIMETHICONE 80 MG TAB.CHEW PO ×3 (08:39→17:48)
[2024-09-27] MEDS: MULTIVIT/MIN/PREN/FOL AC/IRON TABLET 1 TAB PO (08:39)
[2024-09-27] MEDS: DOCUSATE SODIUM 100 MG CAPSULE PO ×2 (08:41→17:48)
[2024-09-27] MEDS: POLYSACCHARIDE IRON COMPLEX 150 MG CAPSULE PO ×2 (08:41→17:48)
--- NOTE | 2024-09-27 09:23 | P.PNOB_ITS ---
OB - PN: Subj Subjective Date/time seen: 09/27/24 09:23 Narrative: Pain OK. Tolerating diet. Would like circumcision for son. OB - PN: Obj Data Labs 09/27/24 04:42 Labs: Laboratory Results - last 24 hr 09/27/24 04:42 WBC 8.6 RBC 3.43 L Hgb 8.7 L Hct 29.1 L MCV 84.8 MCH 25.4 L MCHC 29.9 L RDW 20.4 H Plt Count 181 MPV 10.0 Immature Gran % (Auto) 0.6 H Neut % (Auto) 80.4 H Lymph % (Auto) 11.3 L [place] % (Auto) 5.9 Eos % (Auto) 1.6 Baso % (Auto) 0.2 Lymph # (Auto) 0.97 [place] # (Auto) 0.5 Eos # (Auto) 0.1 Baso # (Auto) 0.0 Abs Immat Gran (auto) 0.05 H Absolute Neuts (auto) 6.9 H Absolute Nucleated RBC 0.000 Nucleated RBC % 0.0 Platelet Estimate Adequate Hypochromasia 1+ Anisocytosis 1+ Microcytosis 1+ Tear Drop Cells 1+ Schistocytes None seen OB - PN A/P Plan day: 1 Comments: A: POD#1, doing well. P: Reviewed circ. Routine care. Exam 2 Narrative: AVSS I/O OK ABD soft, nontender, fundus firm. Incision c/d/i. EXT nontender
[2024-09-27] MEDS: IBUPROFEN 600 MG TABLET PO ×3 (11:05→23:40)
[2024-09-27 12:55] VITALS: BP 121/64; PULSE 91; RESP 18; TEMP 36.2; O2SAT 99
--- NOTE | 2024-09-27 15:02 | WPDANLDPN2 ---
Anes-Prog Note L&D Date/Time: 09/27/24 15:02 Comfortable throughout: section Neuraxial method: spinal Epidural/Spinal procedure site: clean & non-tender Neuro status: Neuro function grossly intact. Cardiovascular status: normal Respiratory status: normal Airway patency: baseline Mental status: baseline Post-Op hydration status: normal Vital Signs: Last Vital Signs Temp 36.2 C L 09/27/24 12:55 Pulse 91 09/27/24 12:55 Resp 18 09/27/24 12:55 BP 121/64 09/27/24 12:55 Pulse Ox 99 09/27/24 12:55 O2 Del Method Room Air 09/27/24 08:00 Pain score (VAS): 0/10 I/O: Intake & Output 09/26/24 09/27/24 09/27/24 23:59 07:59 15:59 Intake Total 700 1400 240 Output Total 500 1300 Balance 200 100 240 Post-procedural complaints: none Patient feedback: Patient satisfied with anesthetic care.
--- NOTE | 2024-09-27 15:03 | WPDANLDNPN2 ---
Anes-Prog Note L&D-Neuraxial Date/Time: 09/27/24 15:03 Neuraxial medications: intrathecal PF morphine Opiod-related complaints: none Patient feedback: Patient satisfied with post-operative pain management.
[2024-09-27] MEDS: LIDOCAINE 5% PATCH 1 PATCH TRANSDERM (17:47)
[2024-09-27 19:40] VITALS: BP 130/68; PULSE 88; RESP 18; TEMP 37; O2SAT 99
[2024-09-28] MEDS: ACETAMINOPHEN 325 MG TABLET 650 MG PO ×2 (05:30→11:42)
[2024-09-28] MEDS: HYDROcodone/acetaminophen (*CRX) 5-325 MG TABLET 1 TAB PO (05:30)
[2024-09-28] MEDS: IBUPROFEN 600 MG TABLET PO ×2 (05:30→11:42)
[2024-09-28 08:00] VITALS: BP 131/67; PULSE 81; RESP 17; TEMP 36.7; O2SAT 100
[2024-09-28] MEDS: POLYSACCHARIDE IRON COMPLEX 150 MG CAPSULE PO (08:07)
[2024-09-28] MEDS: MULTIVIT/MIN/PREN/FOL AC/IRON TABLET 1 TAB PO (08:07)
[2024-09-28] MEDS: DOCUSATE SODIUM 100 MG CAPSULE PO (08:07)
[2024-09-28] MEDS: SIMETHICONE 80 MG TAB.CHEW PO ×2 (08:07→11:41)
--- NOTE | 2024-09-28 09:45 | P.PNOB_ITS ---
OB - PN: Subj Subjective Date/time seen: 09/28/24 09:45 Narrative: Pain OK. Tolerating diet. Would like to go home. OB - PN: Obj Data Labs 09/27/24 04:42 OB - PN A/P Plan day: 2 Comments: A: POD#2, doing well. P: Home to f/u 4 weeks. Exam 2 Narrative: AVSS ABD soft, nontender, fundus firm. Incision c/d/i. EXT nontender
[2024-09-28] MEDS: HYDROcodone/acetaminophen (*CRX) 10-325 MG TABLET 1 TAB PO (11:42)
== END 2024-09-28 12:52 | disposition home or self-care (01) | DRG 788 ==
LOC: ANHLDR 10:00 → ANHOB2 15:34
PROVIDERS: Admitting Provider Obstetrics & Gynecology; PCP Family Medicine; Visit Provider Obstetrics & Gynecology
PROC: 10D00Z1 Extraction of Products of Conception, Low, Open Approach (ICD-10-PCS; CPT 59514; principal; 2024-09-26 12:00)
DX: O34.211 Maternal care for low transverse scar from previous cesarean delivery (principal); Z37.0 Single live birth; Z3A.39 39 weeks gestation of pregnancy; O69.81X0 Labor and delivery complicated by cord around neck, without compression, not applicable or unspecified
CPT/HCPCS: 36415; 85025; A9270; J0690; J1200; J1885; J2250; J2274; J2371; J2405; J2590; J7120